=== PATIENT | female | born 1960 | race Two or more races ===

== ENCOUNTER 2016-11-19 15:36 | Inpatient (IN) | payer SELFPAY ==
[~2016-11-19] VITALS: Ht 165.1 cm; Wt 55.4 kg
[2016-11-19] MEDS ORDERED: SODIUM CHLORIDE 0.9% 1,000 ML IV ONE ×2 (16:06)
[2016-11-19 16:35] LABS: Basophils # (auto) 0 uL; Basophils % (auto) 0.5 % (0.0-2.0); Eosinophils # (auto) 0.1 uL; Hematocrit 36.3 % (36.0-46.0); Hemoglobin 12.3 g/dL (12.2-16.2); Lymphocytes # (auto) 2.5 uL; Lymphocytes % (auto) 37.2 % (10.0-50.0); Mean Corpuscular Hemoglobin 30.3 pg (28.0-32.0); Mean Corpuscular Volume 88.9 fL (80.0-100.0); Mean Platelet Volume 8.4 fL (6.9-10.8); Monocytes # (auto) 0.6 uL; Monocytes % (auto) 8.5 % (0.0-12.0); Neutrophils # (auto) 3.5 uL; Neutrophils % (auto) 51.8 % (37.0-80.0); Nucleated Red Blood Cells % 0.1 %; Platelet Count (auto) 184 10^3/uL (140-450); Red Cell Distribution Width 13.3 % (11.8-14.3); White Blood Cell 6.7 10^3/uL (4.4-10.8)
[2016-11-19 16:42] LABS: Urine Bilirubin Negative (Negative); Urine Blood 2+ /uL (Negative); Urine Color Yellow (Yellow); Urine Glucose Normal (Normal); Urine Ketone Negative (Negative); Urine Mucus FEW (None Seen); Urine Nitrite POSITIVE (Negative); Urine RBC 175 /hpf (0 - 4); Urine Urobilinogen Normal (Negative); Urine WBC Clumps PRESENT /hpf (None Seen); Urine pH 5.5 (5.0-8.0)
[2016-11-19 16:52] LABS: INR 1.06 (0.9-1.15); Partial Thromboplastin Time 31.5 sec (22.64-33.71); Prothrombin Time 11.6 sec (9.37-12.3)
[2016-11-19 17:01] LABS: Albumin 3.5 g/dL (3.4-5.0); BUN/Creatinine Ratio 18.6; Bilirubin, Total 0.9 mg/dL (0.2-1.0); Calcium 8.5 mg/dL (8.5-10.1); Potassium 3.6 mmol/L (3.5-5.1); Total Protein 7.9 g/dL (6.4-8.2)
[2016-11-19] MEDS ORDERED: CIPROFLOXACIN HCL 500 MG TAB PO ONE (17:15)
[2016-11-19] MEDS ORDERED: HETASTARCH 500 ML IV ONE (19:30)
[2016-11-19] MEDS ORDERED: cefTRIAXone 1GM/50ML D5W 50 ML IV ONE (19:45)
[2016-11-19 20:08] LABS: B-Type Natriuretic Peptide 224.28 pg/mL (0-100)
[2016-11-19 20:28] LABS: Temperature: 23.1 C (20.0-25.0)
[2016-11-19] MEDS ORDERED: MORPHINE SULF INJ 2 MG/ML SYRINGE 1ML IV PRN (22:30)
[2016-11-19] MEDS ORDERED: TEMAZEPAM 15 MG CAP PO PRN (22:30)
[2016-11-19] MEDS ORDERED: ACETAMINOPHEN 325 MG TAB PO PRN (22:30)
[2016-11-19] MEDS ORDERED: HYDROcodone-ACET 5/325MG TAB PO PRN (22:30)
[2016-11-19] MEDS ORDERED: ONDANSETRON HCL 4 MG/2 ML VIAL IV PRN (22:30)
[2016-11-19] MEDS ORDERED: NITROGLYCERIN 0.4 MG SL TAB SL PRN (22:30)
[2016-11-19] MEDS ORDERED: IOHEXOL 350 MG/ML 100ML IJ ONE (22:43)
[2016-11-20 00:15] VITALS: BP 93/68
[2016-11-20] MEDS: SODIUM CHLORIDE 0.9% 1,000 ML IV SCH ×2 (00:15→11:50)
[2016-11-20] MEDS ORDERED: ATOR40TA52 PO (04:05)
[2016-11-20] MEDS ORDERED: ASPI-231 PO (04:05)
[2016-11-20] MEDS ORDERED: CARV3.1240 PO (04:05)
[2016-11-20 04:43] VITALS: BP 85/53
[2016-11-20] MEDS ORDERED: SODIUM CHLORIDE 0.9% 500 ML IV ONE (05:30)
[2016-11-20 06:19] LABS: Basophils # (auto) 0 uL; Basophils % (auto) 0.5 % (0.0-2.0); Eosinophils # (auto) 0.1 uL; Eosinophils % (auto) 2.6 % (0.0-7.0); Hematocrit 21.5 % (36.0-46.0); Hemoglobin 7.5 g/dL (12.2-16.2); Lymphocytes # (auto) 1.2 uL; Lymphocytes % (auto) 36.2 % (10.0-50.0); Mean Corpuscular Hemoglobin 31.3 pg (28.0-32.0); Mean Corpuscular Volume 89.4 fL (80.0-100.0); Mean Platelet Volume 8.2 fL (6.9-10.8); Monocytes # (auto) 0.2 uL; Monocytes % (auto) 6.8 % (0.0-12.0); Neutrophils # (auto) 1.8 uL; Neutrophils % (auto) 53.9 % (37.0-80.0); Nucleated Red Blood Cells % 0.1 %; Platelet Count (auto) 102 10^3/uL (140-450); Red Cell Distribution Width 13.3 % (11.8-14.3); White Blood Cell 3.4 10^3/uL (4.4-10.8)
[2016-11-20 08:08] LABS: Potassium 3.8 mmol/L (3.5-5.1)
[2016-11-20 08:09] LABS: Albumin 2.4 g/dL (3.4-5.0); Bilirubin, Total 0.6 mg/dL (0.2-1.0); Calcium 7.1 mg/dL (8.5-10.1); Total Protein 5.1 g/dL (6.4-8.2)
[2016-11-20 09:00] VITALS: BP 100/59
[2016-11-20] MEDS ORDERED: ENOXAPARIN SOD 40 MG/0.4 ML SYRINGE SC SCH (10:00)
[2016-11-20] MEDS: ASPirin 81 mg TAB PO SCH (10:00)
[2016-11-20] MEDS: LEVOFLOXACIN 500MG 100 ML IV SCH (11:17)
[2016-11-20] MEDS: FAMOTIDINE 20 MG TAB PO SCH ×2 (11:17→23:13)
[2016-11-20 12:20] LABS: Basophils # (auto) 0 uL; Eosinophils # (auto) 0.1 uL; Eosinophils % (auto) 2.5 % (0.0-7.0); Hematocrit 27.3 % (36.0-46.0); Hemoglobin 9.8 g/dL (12.2-16.2); Lymphocytes # (auto) 1.6 uL; Lymphocytes % (auto) 39.1 % (10.0-50.0); Mean Corpuscular Hemoglobin 31.9 pg (28.0-32.0); Mean Corpuscular Hgb Conc. 35.7 g/dL (32.0-36.0); Mean Corpuscular Volume 89.5 fL (80.0-100.0); Mean Platelet Volume 8.1 fL (6.9-10.8); Monocytes # (auto) 0.3 uL; Monocytes % (auto) 7.6 % (0.0-12.0); Neutrophils % (auto) 49.8 % (37.0-80.0); Platelet Count (auto) 131 10^3/uL (140-450); Red Cell Distribution Width 13.2 % (11.8-14.3)
[2016-11-20 13:00] VITALS: BP 93/47
[2016-11-20 17:00] VITALS: BP 96/47
[2016-11-20 21:30] VITALS: BP 89/52
[2016-11-20] MEDS ORDERED: ATORVASTATIN 20 MG TAB PO SCH (22:00)
[2016-11-21] MEDS: SODIUM CHLORIDE 0.9% 1,000 ML IV SCH (01:13)
[2016-11-21 05:13] VITALS: BP 80/51
[2016-11-21 06:05] LABS: Basophils # (auto) 0 uL; Basophils % (auto) 0.3 % (0.0-2.0); Eosinophils # (auto) 0.2 uL; Eosinophils % (auto) 3.2 % (0.0-7.0); Hematocrit 28.5 % (36.0-46.0); Hemoglobin 10.1 g/dL (12.2-16.2); Lymphocytes # (auto) 1.6 uL; Lymphocytes % (auto) 31.2 % (10.0-50.0); Mean Corpuscular Hemoglobin 31.7 pg (28.0-32.0); Mean Corpuscular Hgb Conc. 35.4 g/dL (32.0-36.0); Mean Corpuscular Volume 89.3 fL (80.0-100.0); Mean Platelet Volume 8.2 fL (6.9-10.8); Monocytes # (auto) 0.4 uL; Monocytes % (auto) 8.3 % (0.0-12.0); Neutrophils # (auto) 2.9 uL; Nucleated Red Blood Cells % 0.1 %; Platelet Count (auto) 142 10^3/uL (140-450)
[2016-11-21 06:19] LABS: BUN/Creatinine Ratio 19.4; Calcium 7.3 mg/dL (8.5-10.1); Potassium 3.6 mmol/L (3.5-5.1)
[2016-11-21 08:00] VITALS: BP 93/68
[2016-11-21 09:35] VITALS: BP 94/55
[2016-11-21] MEDS: FAMOTIDINE 20 MG TAB PO SCH (10:00)
[2016-11-21] MEDS: ASPirin 81 mg TAB PO SCH (10:00)
[2016-11-21] MEDS: LEVOFLOXACIN 500MG 100 ML IV SCH (10:00)
[2016-11-21 12:11] VITALS: BP 94/55
[2016-11-21 13:00] VITALS: BP 77/51
== END 2016-11-21 13:35 | disposition home or self-care (01) | DRG 872 ==
LOC: ER 15:41 → TELE 15:42 → TELE-CENTR 11-20 00:20
PROVIDERS: ADMIT Nurse Practitioner; ATTEND Nurse Practitioner
DX: A41.9 Sepsis, unspecified organism (principal); I10 Essential (primary) hypertension; N39.0 Urinary tract infection, site not specified; D64.9 Anemia, unspecified; R19.5 Other fecal abnormalities; E86.0 Dehydration; Z86.73 Personal history of transient ischemic attack (TIA), and cerebral infarction without residual deficits
CPT/HCPCS: 36415; 71010; 71275; 74176; 80048; 80053; 81001; 82150; 83605; 83690; 83880; 84484; 85025; 85379; 85610; 85730; 87040; 93005; 93306; 96361; 96374; J0696; J1956; J2405

== ENCOUNTER 2016-11-24 15:58 | Inpatient (IN) | payer SELFPAY ==
[~2016-11-24] VITALS: Ht 157.5 cm; Wt 52.5 kg
[~2016-11-24 15:58] MED LIST: ASPI-231 PO; ATOR40TA52 PO; CARV3.1240 PO
[2016-11-24] MEDS ORDERED: DEXTROSE 50% SYRINGE 50 ML IV ONE (16:12)
[2016-11-24] MEDS ORDERED: DEXTROSE (50%) 50ML SYRG IV ONE (16:30)
[2016-11-24 16:54] LABS: Basophils # (auto) 0 uL; Basophils % (auto) 0.6 % (0.0-2.0); Eosinophils # (auto) 0.3 uL; Eosinophils % (auto) 5.6 % (0.0-7.0); Hematocrit 33.5 % (36.0-46.0); Hemoglobin 11.6 g/dL (12.2-16.2); Lymphocytes # (auto) 2.2 uL; Lymphocytes % (auto) 45.9 % (10.0-50.0); Mean Corpuscular Hemoglobin 30.4 pg (28.0-32.0); Mean Corpuscular Hgb Conc. 34.8 g/dL (32.0-36.0); Mean Corpuscular Volume 87.3 fL (80.0-100.0); Mean Platelet Volume 8.3 fL (6.9-10.8); Monocytes # (auto) 0.3 uL; Monocytes % (auto) 7.1 % (0.0-12.0); Neutrophils % (auto) 40.8 % (37.0-80.0); Nucleated Red Blood Cells % 0.1 %; Platelet Count (auto) 250 10^3/uL (140-450); Red Cell Distribution Width 13.2 % (11.8-14.3); White Blood Cell 4.9 10^3/uL (4.4-10.8)
[2016-11-24 17:03] LABS: Albumin 3.2 g/dL (3.4-5.0); Anion Gap 6 (5-15); Aspartate Aminotransferase 31 U/L (15-37); BUN/Creatinine Ratio 14.6; Blood Urea Nitrogen 6 mg/dL (7-18); Calcium 8.3 mg/dL (8.5-10.1); Carbon Dioxide 24 mmol/L (21-32); Chloride 97 mmol/L (98-107); GFR African American 207 mL/min; GFR Non-African American 171 mL/min; Glucose 52 mg/dL (74-106); Magnesium 2.4 mg/dL (1.6-2.6); Potassium 4.2 mmol/L (3.5-5.1); Sodium 127 mmol/L (136-145)
[2016-11-24 17:08] LABS: Alkaline Phosphatase 61 U/L (45-117); Bilirubin, Total 0.5 mg/dL (0.2-1.0); Total Protein 6.8 g/dL (6.4-8.2)
[2016-11-24] MEDS ORDERED: SODIUM CHLORIDE 0.9% 1,000 ML IVB ONE (18:04)
[2016-11-24 18:46] LABS: INR 1.15 (0.9-1.15); Partial Thromboplastin Time 41.4 sec (22.64-33.71); Prothrombin Time 12.5 sec (9.37-12.3)
[2016-11-24 20:25] LABS: Urine Bilirubin Negative (Negative); Urine Blood Negative /uL (Negative); Urine Color Yellow (Yellow); Urine Glucose 3+ mg/dL (Normal); Urine Ketone 2+ (Negative); Urine Nitrite Negative (Negative); Urine RBC <1 /hpf (0 - 4); Urine Urobilinogen Normal (Negative); Urine pH 6.5 (5.0-8.0)
[2016-11-24] MEDS ORDERED: NOREPINEPHRINE BITARTRATE 250 ML IV SCH ×2 (20:26→20:30)
[2016-11-24] MEDS: PHENYLEPHRINE INJ 20 MG in SODIUM CHL 0.9% 250 ML IV SCH (21:45)
[2016-11-24] MEDS ORDERED: ACETAMINOPHEN 325 MG TAB PO PRN (22:00)
[2016-11-24] MEDS ORDERED: DEXTROSE (50%) 50ML SYRG IV PRN (22:00)
[2016-11-24] MEDS ORDERED: HYDROcodone-ACET 5/325MG TAB PO PRN (22:00)
[2016-11-24] MEDS ORDERED: MORPHINE SULF INJ 2 MG/ML SYRINGE 1ML IV PRN (22:00)
[2016-11-24] MEDS ORDERED: NITROGLYCERIN 0.4 MG SL TAB SL PRN (22:00)
[2016-11-24] MEDS ORDERED: cefTRIAXone 1GM/50ML D5W 50 ML IV ONE (22:00)
[2016-11-24] MEDS ORDERED: ONDANSETRON HCL 4 MG/2 ML VIAL IV PRN (22:00)
[2016-11-24] MEDS: D5W/SOD CHLO 0.9% 1,000 ML IV SCH (22:23)
[2016-11-24] MEDS: FAMOTIDINE 20 MG TAB PO SCH (22:40)
[2016-11-24 22:41] LABS: BUN/Creatinine Ratio 14.8; Calcium 6.5 mg/dL (8.5-10.1)
[2016-11-24 23:11] VITALS: BP 111/62
[2016-11-24 23:16] VITALS: BP 87/63
[2016-11-24 23:31] VITALS: BP 96/52
[2016-11-24] MEDS: InsuLIN REG 1unit/0.01ml Soln (100units/ml) SC SCH (23:45)
[2016-11-24] MEDS: ACCU-CHEK COMFORT CURVE STRIP VI SCH (23:45)
[2016-11-24 23:46] VITALS: BP 100/61
[2016-11-25] VITALS (95 sets, daily range): BP systolic 79–156; BP diastolic 33–99
[2016-11-25] MEDS ORDERED: CALCIUM GLUC 4.65meq/50ml D5AE 50 ML IV ONE (00:45)
[2016-11-25] MEDS ORDERED: PNEUMOCOCCAL VACC POLYS 25 MCG/0.5 ML VIAL IM ONE (02:00)
[2016-11-25] MEDS ORDERED: PHENYLEPHRINE IV 250 ML IV ONE ×2 (03:56→11:36)
[2016-11-25] MEDS: InsuLIN REG 1unit/0.01ml Soln (100units/ml) SC SCH ×5 (04:00→19:43)
[2016-11-25 04:04] LABS: Basophils # (auto) 0 uL; Basophils % (auto) 0.4 % (0.0-2.0); Eosinophils # (auto) 0.3 uL; Eosinophils % (auto) 5.6 % (0.0-7.0); Hematocrit 31.3 % (36.0-46.0); Hemoglobin 10.8 g/dL (12.2-16.2); Lymphocytes # (auto) 2.2 uL; Lymphocytes % (auto) 37.4 % (10.0-50.0); Mean Corpuscular Hemoglobin 30.7 pg (28.0-32.0); Mean Corpuscular Hgb Conc. 34.6 g/dL (32.0-36.0); Mean Corpuscular Volume 88.7 fL (80.0-100.0); Mean Platelet Volume 8.4 fL (6.9-10.8); Monocytes # (auto) 0.4 uL; Neutrophils % (auto) 50.6 % (37.0-80.0); Nucleated Red Blood Cells % 0.1 %; Platelet Count (auto) 274 10^3/uL (140-450); Red Cell Distribution Width 13.1 % (11.8-14.3)
[2016-11-25] MEDS: ACCU-CHEK COMFORT CURVE STRIP VI SCH ×5 (04:07→19:43)
[2016-11-25] MEDS: PHENYLEPHRINE INJ 20 MG in SODIUM CHL 0.9% 250 ML IV SCH ×3 (04:08→20:58)
[2016-11-25 04:19] LABS: Potassium 3.7 mmol/L (3.5-5.1)
[2016-11-25 04:23] LABS: Albumin 2.4 g/dL (3.4-5.0); Calcium 6.9 mg/dL (8.5-10.1)
[2016-11-25 04:26] LABS: Bilirubin, Total 0.3 mg/dL (0.2-1.0); Total Protein 5.7 g/dL (6.4-8.2)
[2016-11-25] MEDS: cefTRIAXone 1GM/50ML D5W 50 ML IV SCH (09:05)
[2016-11-25] MEDS: FAMOTIDINE 20 MG TAB PO SCH ×2 (10:14→21:56)
[2016-11-25] MEDS: ENOXAPARIN SOD 40 MG/0.4 ML SYRINGE SC SCH (10:14)
[2016-11-25] MEDS: D5W/SOD CHLO 0.9% 1,000 ML IV SCH (11:50)
[2016-11-25] MEDS: Boost Glucose Control 8 Ounces PO SCH ×2 (12:00→18:00)
[2016-11-25 12:59] LABS: Allen Test Modified; Base Excess -4.5 mmol/L (-2.0-2.0); Blood 02Sat 89.3 % (96-100); Blood COHb 0.3 % (0.5-1.5); Blood MetHb 0.3 % (0.0-1.5); HCO3 19.2 mmol/L (22-26.0); HHb 10.6 % (0.0-5.0); MODE NASAL CANNULA; O2Hb 88.8 % (94.0-97.0); PCO2 31.3 mmHg (35.0-45.0); PCO2(T) 31.3 mmHg (35.0-45.0); PO2 56.3 mmHg (80.0-100.0); PO2(T) 56.3 mmHg (80.0-100.0); Sample Type Arterial; pH 7.406 (7.350-7.450)
[2016-11-25] MEDS ORDERED: NOREPINEPHRINE BITARTRATE 250 ML IV ONE (14:17)
[2016-11-25] MEDS ORDERED: SULF400T PO (14:17)
[2016-11-25] MEDS: NOREPINEPHRINE BITARTRATE 250 ML IV SCH (14:30)
[2016-11-25] MEDS ORDERED: VITAMINS A & D (TOPICAL) OINT 5GM TOP ONE (16:26)
[2016-11-25] MEDS ORDERED: IOHEXOL 350 MG/ML 100ML IJ ONE (17:38)
[2016-11-25] MEDS ORDERED: IOHEXOL 300 MG/ML 100ML BOTTLE IJ ONE (17:41)
[2016-11-26] VITALS (94 sets, daily range): BP systolic 74–114; BP diastolic 44–74
[2016-11-26] MEDS: D5W/SOD CHLO 0.9% 1,000 ML IV SCH ×2 (02:00→13:07)
[2016-11-26 03:53] LABS: Basophils # (auto) 0 uL; Basophils % (auto) 0.4 % (0.0-2.0); Eosinophils # (auto) 0.2 uL; Hematocrit 32.7 % (36.0-46.0); Hemoglobin 11.2 g/dL (12.2-16.2); Lymphocytes # (auto) 2.7 uL; Lymphocytes % (auto) 38.3 % (10.0-50.0); Mean Corpuscular Hemoglobin 30.2 pg (28.0-32.0); Mean Corpuscular Hgb Conc. 34.3 g/dL (32.0-36.0); Mean Corpuscular Volume 88.1 fL (80.0-100.0); Mean Platelet Volume 8.2 fL (6.9-10.8); Monocytes # (auto) 0.6 uL; Monocytes % (auto) 8.7 % (0.0-12.0); Neutrophils # (auto) 3.5 uL; Neutrophils % (auto) 49.6 % (37.0-80.0); Nucleated Red Blood Cells % 0.1 %; Platelet Count (auto) 266 10^3/uL (140-450); Red Cell Distribution Width 13.3 % (11.8-14.3); White Blood Cell 7.1 10^3/uL (4.4-10.8)
[2016-11-26] MEDS: InsuLIN REG 1unit/0.01ml Soln (100units/ml) SC SCH ×6 (04:00→20:29)
[2016-11-26 04:13] LABS: Anion Gap 10 (5-15); Blood Urea Nitrogen < 1 mg/dL (7-18); Carbon Dioxide 20 mmol/L (21-32); Chloride 98 mmol/L (98-107); GFR African American 266 mL/min; GFR Non-African American 220 mL/min; Glucose 134 mg/dL (74-106); Potassium 3.4 mmol/L (3.5-5.1); Sodium 128 mmol/L (136-145)
[2016-11-26] MEDS: ACCU-CHEK COMFORT CURVE STRIP VI SCH ×6 (04:19→20:29)
[2016-11-26] MEDS: PHENYLEPHRINE INJ 20 MG in SODIUM CHL 0.9% 250 ML IV SCH (05:18)
[2016-11-26] MEDS: cefTRIAXone 1GM/50ML D5W 50 ML IV SCH (08:58)
[2016-11-26] MEDS: Boost Glucose Control 8 Ounces PO SCH ×3 (09:00→18:00)
[2016-11-26] MEDS: FAMOTIDINE 20 MG TAB PO SCH ×2 (10:35→22:30)
[2016-11-26] MEDS: ENOXAPARIN SOD 40 MG/0.4 ML SYRINGE SC SCH (10:37)
[2016-11-26] MEDS ORDERED: POTASSIUM CHL 20 Meq TABLET PO ONE (11:00)
[2016-11-26] MEDS: HYDROCORTISONE SOD SUCC 100 MG/2ML INJ VIAL IV SCH ×2 (12:05→20:29)
[2016-11-26] MEDS: NOREPINEPHRINE BITARTRATE 250 ML IV SCH (14:40)
[2016-11-27] VITALS (90 sets, daily range): BP systolic 75–126; BP diastolic 30–88
[2016-11-27] MEDS: ACCU-CHEK COMFORT CURVE STRIP VI SCH ×7 (00:30→23:58)
[2016-11-27] MEDS: InsuLIN REG 1unit/0.01ml Soln (100units/ml) SC SCH ×7 (01:09→23:58)
[2016-11-27] MEDS: D5W/SOD CHLO 0.9% 1,000 ML IV SCH (02:57)
[2016-11-27] MEDS: HYDROCORTISONE SOD SUCC 100 MG/2ML INJ VIAL IV SCH ×3 (04:15→20:30)
[2016-11-27 05:16] LABS: BUN/Creatinine Ratio 2.5; Calcium 8.2 mg/dL (8.5-10.1); Potassium 3.5 mmol/L (3.5-5.1)
[2016-11-27] MEDS: Boost Glucose Control 8 Ounces PO SCH ×3 (08:03→18:18)
[2016-11-27] MEDS: cefTRIAXone 1GM/50ML D5W 50 ML IV SCH (08:59)
[2016-11-27] MEDS: ENOXAPARIN SOD 40 MG/0.4 ML SYRINGE SC SCH (09:55)
[2016-11-27] MEDS: FAMOTIDINE 20 MG TAB PO SCH ×2 (09:55→22:00)
[2016-11-27] MEDS ORDERED: LEVOTHYROXINE SODIUM 25 MCG TAB PO ONE (12:45)
[2016-11-27] MEDS: SODIUM CHLORIDE 0.9% 1,000 ML IV SCH ×2 (13:53→22:45)
[2016-11-27] MEDS: NOREPINEPHRINE BITARTRATE 250 ML IV SCH (14:30)
[2016-11-27] MEDS: LORazepam 0.5 MG TAB PO PRN (21:00)
[2016-11-27] MEDS: TEMAZEPAM 15 MG CAP PO PRN (22:00)
[2016-11-28] VITALS (95 sets, daily range): BP systolic 74–129; BP diastolic 32–83
[2016-11-28] MEDS: ACCU-CHEK COMFORT CURVE STRIP VI SCH ×5 (03:59→20:00)
[2016-11-28] MEDS: InsuLIN REG 1unit/0.01ml Soln (100units/ml) SC SCH ×5 (04:00→20:00)
[2016-11-28] MEDS: HYDROCORTISONE SOD SUCC 100 MG/2ML INJ VIAL IV SCH ×3 (04:27→20:00)
[2016-11-28] MEDS: LORazepam 0.5 MG TAB PO PRN ×2 (04:30→14:25)
[2016-11-28 04:44] LABS: BUN/Creatinine Ratio 13.3; Magnesium 2.5 mg/dL (1.6-2.6); Potassium 3.7 mmol/L (3.5-5.1)
[2016-11-28] MEDS: Boost Glucose Control 8 Ounces PO SCH ×3 (07:57→18:56)
[2016-11-28] MEDS: LEVOTHYROXINE SODIUM 25 MCG TAB PO SCH (07:57)
[2016-11-28] MEDS ORDERED: SODIUM CHLORIDE 0.9% 1,000 ML IV ONE (09:30)
[2016-11-28] MEDS: SODIUM CHLORIDE 0.9% 1,000 ML IV SCH ×2 (09:43→18:45)
[2016-11-28] MEDS: cefTRIAXone 1GM/50ML D5W 50 ML IV SCH (09:43)
[2016-11-28] MEDS: FAMOTIDINE 20 MG TAB PO SCH ×2 (09:48→22:10)
[2016-11-28] MEDS: NOREPINEPHRINE BITARTRATE 250 ML IV SCH (14:30)
[2016-11-28] MEDS: TEMAZEPAM 15 MG CAP PO PRN (22:10)
[2016-11-29] VITALS (87 sets, daily range): BP systolic 83–122; BP diastolic 35–71
[2016-11-29] MEDS: ACCU-CHEK COMFORT CURVE STRIP VI SCH ×7 (00:01→23:32)
[2016-11-29] MEDS: InsuLIN REG 1unit/0.01ml Soln (100units/ml) SC SCH ×7 (00:08→23:32)
[2016-11-29] MEDS ORDERED: GASTROGRAFIN 30 ML SOL ONE (07:52)
[2016-11-29] MEDS: Boost Glucose Control 8 Ounces PO SCH ×3 (09:10→19:26)
[2016-11-29] MEDS: cefTRIAXone 1GM/50ML D5W 50 ML IV SCH (09:10)
[2016-11-29] MEDS: LEVOTHYROXINE SODIUM 25 MCG TAB PO SCH (09:11)
[2016-11-29] MEDS: HYDROCORTISONE SOD SUCC 100 MG/2ML INJ VIAL IV SCH ×2 (09:11→11:49)
[2016-11-29] MEDS ORDERED: IOHEXOL 300 MG/ML 100ML BOTTLE IJ ONE (10:51)
[2016-11-29] MEDS: FAMOTIDINE 20 MG TAB PO SCH ×2 (11:49→22:00)
[2016-11-29] MEDS: SODIUM CHLORIDE 0.9% 1,000 ML IV SCH (11:56)
[2016-11-29] MEDS: NOREPINEPHRINE BITARTRATE 250 ML IV SCH (14:30)
[2016-11-29] MEDS ORDERED: predniSONE 5 MG TAB PO SCH (16:00)
[2016-11-29] MEDS ORDERED: predniSONE 5 MG TAB PO ONE (16:00)
[2016-11-29] MEDS: predniSONE 20 MG TAB PO SCH (17:52)
[2016-11-29] MEDS ORDERED: HYDROCORTISONE SOD SUCC 100 MG/2ML INJ VIAL IV SCH (20:00)
[2016-11-29] MEDS: TEMAZEPAM 15 MG CAP PO PRN (22:40)
[2016-11-30] VITALS (23 sets, daily range): BP systolic 87–141; BP diastolic 42–77
[2016-11-30] MEDS: ACCU-CHEK COMFORT CURVE STRIP VI SCH ×3 (04:00→12:30)
[2016-11-30] MEDS: InsuLIN REG 1unit/0.01ml Soln (100units/ml) SC SCH ×3 (04:00→12:41)
[2016-11-30 04:03] LABS: Basophils # (auto) 0 uL; Basophils % (auto) 0.1 % (0.0-2.0); Eosinophils # (auto) 0 uL; Hematocrit 28.8 % (36.0-46.0); Hemoglobin 9.8 g/dL (12.2-16.2); Mean Corpuscular Hemoglobin 30.6 pg (28.0-32.0); Mean Corpuscular Hgb Conc. 33.9 g/dL (32.0-36.0); Mean Corpuscular Volume 90.3 fL (80.0-100.0); Mean Platelet Volume 7.8 fL (6.9-10.8); Monocytes # (auto) 0.2 uL; Monocytes % (auto) 3.2 % (0.0-12.0); Neutrophils # (auto) 5.8 uL; Neutrophils % (auto) 82.7 % (37.0-80.0); Nucleated Red Blood Cells % 0.1 %; Platelet Count (auto) 232 10^3/uL (140-450); Red Cell Distribution Width 14.6 % (11.8-14.3)
[2016-11-30 04:23] LABS: Potassium 3.6 mmol/L (3.5-5.1)
[2016-11-30 04:27] LABS: BUN/Creatinine Ratio 25.5; Calcium 7.5 mg/dL (8.5-10.1); Magnesium 2.4 mg/dL (1.6-2.6)
[2016-11-30] MEDS: LEVOTHYROXINE SODIUM 25 MCG TAB PO SCH (06:32)
[2016-11-30] MEDS: Boost Glucose Control 8 Ounces PO SCH ×3 (08:00→18:00)
[2016-11-30] MEDS: predniSONE 20 MG TAB PO SCH ×2 (09:08→16:30)
[2016-11-30] MEDS: FAMOTIDINE 20 MG TAB PO SCH ×2 (09:43→21:26)
[2016-11-30] MEDS: TEMAZEPAM 15 MG CAP PO PRN (21:26)
[2016-12-01] VITALS (23 sets, daily range): BP systolic 96–121; BP diastolic 35–71
[2016-12-01] MEDS: LEVOTHYROXINE SODIUM 25 MCG TAB PO SCH (06:48)
[2016-12-01] MEDS: predniSONE 20 MG TAB PO SCH (09:08)
[2016-12-01] MEDS: Boost Glucose Control 8 Ounces PO SCH ×3 (09:08→18:17)
[2016-12-01] MEDS: FAMOTIDINE 20 MG TAB PO SCH ×2 (09:11→21:42)
[2016-12-01 09:44] LABS: Temperature: 22.9 C (20.0-25.0)
[2016-12-01] MEDS: HYDROCORTISONE 10 MG TAB PO SCH (21:43)
[2016-12-01] MEDS ORDERED: HYDROCORTISONE 10 MG TAB PO SCH (22:00)
[2016-12-01] MEDS: TEMAZEPAM 15 MG CAP PO PRN (23:14)
[2016-12-02] VITALS (9 sets, daily range): BP systolic 93–122; BP diastolic 42–70
[2016-12-02] MEDS: LEVOTHYROXINE SODIUM 25 MCG TAB PO SCH (06:50)
[2016-12-02] MEDS: Boost Glucose Control 8 Ounces PO SCH ×3 (08:00→18:12)
[2016-12-02] MEDS: FAMOTIDINE 20 MG TAB PO SCH ×2 (09:44→22:46)
[2016-12-02] MEDS: HYDROCORTISONE 10 MG TAB PO SCH ×2 (09:44→22:46)
[2016-12-02] MEDS: TEMAZEPAM 15 MG CAP PO PRN (22:47)
[2016-12-03 05:27] VITALS: BP 105/75
[2016-12-03] MEDS: LEVOTHYROXINE SODIUM 25 MCG TAB PO SCH (06:41)
[2016-12-03 07:38] VITALS: BP 125/68
[2016-12-03] MEDS: Boost Glucose Control 8 Ounces PO SCH ×3 (08:35→18:17)
[2016-12-03] MEDS: HYDROCORTISONE 10 MG TAB PO SCH ×2 (10:03→22:15)
[2016-12-03] MEDS: FAMOTIDINE 20 MG TAB PO SCH ×2 (10:04→22:15)
[2016-12-03 16:39] VITALS: BP 110/59
[2016-12-03 22:02] VITALS: BP 113/69
[2016-12-04 05:15] VITALS: BP 117/70
[2016-12-04] MEDS: LEVOTHYROXINE SODIUM 25 MCG TAB PO SCH (06:22)
[2016-12-04] MEDS: Boost Glucose Control 8 Ounces PO SCH ×3 (08:00→18:00)
[2016-12-04 09:00] VITALS: BP 128/59
[2016-12-04] MEDS: HYDROCORTISONE 10 MG TAB PO SCH (10:37)
[2016-12-04] MEDS: FAMOTIDINE 20 MG TAB PO SCH (10:37)
[2016-12-04 13:00] VITALS: BP 102/59
[2016-12-04] MEDS ORDERED: HYDR10T PO (15:10)
[2016-12-04] MEDS ORDERED: LEV25T PO (15:10)
[2016-12-04 15:42] VITALS: BP 102/59
[2016-12-04 16:50] VITALS: BP 125/76
== END 2016-12-04 18:15 | disposition home or self-care (01) | DRG 643 ==
LOC: ER 16:02 → TELE 16:03 → ICU WEST 23:04 → WEST WING 12-02 14:24
PROVIDERS: ADMIT Nurse Practitioner; ATTEND Nurse Practitioner Acute Care
PROC: 5A1935Z Respiratory Ventilation, Less than 24 Consecutive Hours (ICD-10-PCS; principal; 2016-11-25)
DX: E27.49 Other adrenocortical insufficiency (principal); G93.41 Metabolic encephalopathy; T68.XXXA Hypothermia, initial encounter; E23.0 Hypopituitarism; E87.1 Hypo-osmolality and hyponatremia; N39.0 Urinary tract infection, site not specified; E23.6 Other disorders of pituitary gland; D64.9 Anemia, unspecified; I10 Essential (primary) hypertension; E78.5 Hyperlipidemia, unspecified; E16.2 Hypoglycemia, unspecified; Z53.20 Procedure and treatment not carried out because of patient's decision for unspecified reasons; F41.9 Anxiety disorder, unspecified; Z83.3 Family history of diabetes mellitus; Z86.73 Personal history of transient ischemic attack (TIA), and cerebral infarction without residual deficits; Z81.1 Family history of alcohol abuse and dependence
CPT/HCPCS: 36415; 36600; 51702; 70470; 71010; 80048; 80053; 81001; 82024; 82533; 82607; 82746; 82805; 82962; 83001; 83605; 83735; 83970; 84146; 84439; 84443; 84481; 84484; 85025; 85610; 85730; 86850; 86900; 86901; 87040; 87081; 87086; 93005; 95819; 96361; 96365; 96375; 97116; 97530; 99291; J0610; J0696; J1815; J2405; J7042

== ENCOUNTER 2017-05-03 15:34 | Emergency (ER) | payer MEDICAID ==
[~2017-05-03] VITALS: Ht 162.6 cm; Wt 49.0 kg
[~2017-05-03 15:34] MED LIST changes: +HYDR10T PO; +LEV25T PO
[2017-05-03 16:38] LABS: Albumin 3.7 g/dL (3.4-5.0); BUN/Creatinine Ratio 23.5; Calcium 8.7 mg/dL (8.5-10.1); Potassium 3.9 mmol/L (3.5-5.1)
[2017-05-03 16:40] LABS: Basophils # (auto) 0 uL; Basophils % (auto) 0.3 % (0.0-2.0); Eosinophils # (auto) 0.3 uL; Hematocrit 36.6 % (36.0-46.0); Hemoglobin 12.3 g/dL (12.2-16.2); Lymphocytes # (auto) 2.7 uL; Lymphocytes % (auto) 32.8 % (10.0-50.0); Mean Corpuscular Hemoglobin 29.1 pg (28.0-32.0); Mean Corpuscular Hgb Conc. 33.5 g/dL (32.0-36.0); Mean Corpuscular Volume 86.9 fL (80.0-100.0); Monocytes # (auto) 0.5 uL; Monocytes % (auto) 6.4 % (0.0-12.0); Neutrophils # (auto) 4.8 uL; Neutrophils % (auto) 57.5 % (37.0-80.0); Nucleated Red Blood Cells % 0.2 %; Platelet Count (auto) 204 10^3/uL (140-450); Red Blood Cells 4.21 10^6/uL (4.0-5.20); Red Cell Distribution Width 13.6 % (11.8-14.3); White Blood Cell 8.4 10^3/uL (4.4-10.8)
[2017-05-03 16:41] LABS: Bilirubin, Total 0.7 mg/dL (0.2-1.0); Total Protein 7.1 g/dL (6.4-8.2)
[2017-05-03 17:05] LABS: Urine Bacteria FEW /hpf (None Seen); Urine Blood 2+ /uL (Negative); Urine Specific Gravity 1.019 (1.001-1.035); Urine WBC 2551 /hpf (0 - 5)
[2017-05-03] MEDS ORDERED: SODIUM CHLORIDE 0.9% 1,000 ML IVB ONE (17:47)
[2017-05-03] MEDS ORDERED: cefTRIAXone 1GM/10ml IVPUSH 10 ML IV ONE (18:00)
[2017-05-03] MEDS ORDERED: ONDANSETRON HCL 4 MG/2 ML VIAL IV ONE (18:00)
[2017-05-03 18:42] VITALS: BP 95/63
== END 2017-05-03 19:25 | disposition home or self-care (01) ==
LOC: ER 15:39
DX: N39.0 Urinary tract infection, site not specified (principal); E78.5 Hyperlipidemia, unspecified; I10 Essential (primary) hypertension; Z79.899 Other long term (current) drug therapy; Z79.82 Long term (current) use of aspirin; Z86.73 Personal history of transient ischemic attack (TIA), and cerebral infarction without residual deficits
CPT/HCPCS: 36415; 74176; 80053; 81001; 83690; 85025; 93005; 94761; 96361; 96374; 96375; 99285; J2405; J7030

== ENCOUNTER 2018-10-06 11:21 | Emergency (ER) | payer MEDICAID ==
[~2018-10-06] VITALS: Ht 154.9 cm; Wt 54.4 kg
[~2018-10-06 11:21] MED LIST changes: +FERR1TAB8; +PANT40TA2 PO
[2018-10-06 11:58] LABS: Basophils # (auto) 0.1 uL; Basophils % (auto) 1.2 % (0.0-2.0); Eosinophils # (auto) 0.2 uL; Eosinophils % (auto) 4.1 % (0.0-7.0); Hematocrit 38.3 % (36.0-46.0); Hemoglobin 13.4 g/dL (12.2-16.2); Lymphocytes # (auto) 2.2 uL; Lymphocytes % (auto) 45.6 % (10.0-50.0); Mean Corpuscular Hemoglobin 31.4 pg (28.0-32.0); Mean Corpuscular Volume 89.5 fL (80.0-100.0); Monocytes # (auto) 0.3 uL; Monocytes % (auto) 5.9 % (0.0-12.0); Neutrophils # (auto) 2.1 uL; Neutrophils % (auto) 43.2 % (37.0-80.0); Nucleated Red Blood Cells % 0.1 %; Platelet Count (auto) 154 10^3/uL (140-450); Red Blood Cells 4.28 10^6/uL (4.0-5.20); Red Cell Distribution Width 13.3 % (11.8-14.3); White Blood Cell 4.9 10^3/uL (4.4-10.8)
[2018-10-06] MEDS ORDERED: SODIUM CHLORIDE 0.9% 1,000 ML IVB ONE (12:08)
[2018-10-06] MEDS ORDERED: ONDANSETRON HCL 4 MG/2 ML VIAL IV ONE (12:15)
[2018-10-06 12:23] LABS: Albumin 3.9 g/dL (3.4-5.0); Anion Gap 6 (5-15); Blood Urea Nitrogen 15 mg/dL (7-18); Calcium 8.9 mg/dL (8.5-10.1); Carbon Dioxide 27 mmol/L (21-32); Chloride 106 mmol/L (98-107); Glucose 94 mg/dL (74-106); Potassium 3.6 mmol/L (3.5-5.1); Sodium 139 mmol/L (136-145)
[2018-10-06 12:26] LABS: Urine Bacteria NONE SEEN /hpf (None Seen); Urine Blood Negative /uL (Negative); Urine Mucus FEW (None Seen); Urine Specific Gravity 1.019 (1.001-1.035); Urine WBC 7 /hpf (0 - 5)
[2018-10-06 12:28] LABS: Alanine Aminotransferase 16 U/L (13-56); Alkaline Phosphatase 54 U/L (45-117); Aspartate Aminotransferase 33 U/L (15-37); BUN/Creatinine Ratio 25.4; Bilirubin, Total 0.5 mg/dL (0.2-1.0); GFR African American 135 mL/min; GFR Non-African American 112 mL/min; Total Protein 8.2 g/dL (6.4-8.2)
[2018-10-06 12:35] LABS: INR 1.03 (0.9-1.15)
[2018-10-06 12:43] LABS: Magnesium 2.2 mg/dL (1.6-2.6)
[2018-10-06 12:59] VITALS: BP 121/54
== END 2018-10-06 14:34 | disposition home or self-care (01) ==
LOC: ER 11:23
DX: K52.9 Noninfective gastroenteritis and colitis, unspecified (principal); E78.5 Hyperlipidemia, unspecified; I10 Essential (primary) hypertension; Z86.39 Personal history of other endocrine, nutritional and metabolic disease; Z86.73 Personal history of transient ischemic attack (TIA), and cerebral infarction without residual deficits
CPT/HCPCS: 36415; 71045; 74176; 80053; 81001; 82150; 83690; 83735; 84484; 85025; 85610; 85730; 93005; 94761; 96361; 96374; 99284; J2405; J7030

== ENCOUNTER 2022-12-31 19:07 | Emergency (ER) | payer MEDICAID, OTHER ==
[~2022-12-31] VITALS: Ht 157.5 cm; Wt 60.0 kg
[~2022-12-31 19:07] MED LIST changes: -ASPI-231 PO; +ASPI1TAB20 PO
[2022-12-31] MEDS ORDERED: LIDOCAINE VISCOUS 2% 15ML UD MT ONE (20:00)
[2022-12-31] MEDS ORDERED: MAALOX PLUS or MAALOX 30 ML PO ONE (20:00)
[2022-12-31] MEDS ORDERED: ONDANSETRON ODT 4 MG TAB PO ONE (20:00)
[2022-12-31 20:31] LABS: Basophils # (auto) 0.2 10 ^3/uL (0-0.2); Basophils % (auto) 1.9 % (0.0-2.0); Eosinophils # (auto) 0.1 10 ^3/uL (0-0.8); Eosinophils % (auto) 1.2 % (0.0-7.0); Hematocrit 40.6 % (36.0-46.0); Hemoglobin 13.8 g/dL (12.2-16.2); Lymphocytes # (auto) 1.9 10 ^3/uL (0.4-5.4); Lymphocytes % (auto) 21.3 % (10.0-50.0); Mean Corpuscular Hemoglobin 30.7 pg (28.0-32.0); Mean Corpuscular Hgb Conc. 33.9 g/dL (32.0-36.0); Mean Corpuscular Volume 90.6 fL (80.0-100.0); Monocytes # (auto) 0.3 10 ^3/uL (0-1.3); Monocytes % (auto) 3.7 % (0.0-12.0); Neutrophils # (auto) 6.6 10 ^3/uL (1.6-8.6); Neutrophils % (auto) 71.9 % (37.0-80.0); Nucleated Red Blood Cells % 0.1 %; Red Blood Cells 4.49 10^6/uL (4.0-5.20); Red Cell Distribution Width 13.2 % (11.8-14.3); White Blood Cell 9.1 10^3/uL (4.4-10.8)
[2022-12-31 20:36] LABS: Urine Bacteria FEW /hpf (None Seen); Urine Blood 1+ /uL (Negative); Urine Clarity Clear (Clear); Urine Color Yellow (Yellow); Urine Mucus FEW (None Seen); Urine Protein, UAD TRACE (Negative); Urine Specific Gravity 1.023 (1.001-1.035); Urine Urobilinogen Normal (Negative); Urine WBC 65 /hpf (0 - 5); Urine pH 5.5 (5.0-8.0)
[2022-12-31 20:46] LABS: Alanine Aminotransferase 24 U/L (7-40); Albumin 4.5 g/dL (3.2-4.8); Alkaline Phosphatase 82 U/L (46-116); Anion Gap 10 (5-15); Aspartate Aminotransferase 32 U/L (13-40); BUN/Creatinine Ratio 15.6 (10.0-20.0); Blood Urea Nitrogen 12 mg/dL (9-23); Calcium 9.4 mg/dL (8.7-10.4); Carbon Dioxide 24 mmol/L (20-30); Chloride 103 mmol/L (98-107); Glucose 157 mg/dL (74-106); Lipase 59 U/L (12-53); Potassium 3.4 mmol/L (3.5-5.1); Sodium 137 mmol/L (136-145)
[2022-12-31 20:47] LABS: Bilirubin, Total 0.4 mg/dL (0.2-1.0); Total Protein 7.6 g/dL (5.7-8.2)
[2023-01-01] MEDS ORDERED: ESOM40CA39 PO (00:54)
[2023-01-01] MEDS ORDERED: NITR-87 PO (00:54)
[2023-01-01 01:14] VITALS: BP 111/69; TEMP 97.9
[2023-01-01 01:38] VITALS: PULSE 78; RESP 16; O2SAT 98
== END 2023-01-01 01:39 | disposition home or self-care (01) ==
LOC: ER 19:07
DX: K29.00 Acute gastritis without bleeding (principal); N39.0 Urinary tract infection, site not specified; I10 Essential (primary) hypertension; E78.5 Hyperlipidemia, unspecified; Z86.73 Personal history of transient ischemic attack (TIA), and cerebral infarction without residual deficits; Z79.82 Long term (current) use of aspirin; Z79.899 Other long term (current) drug therapy
CPT/HCPCS: 36415; 74176; 80053; 81001; 83690; 84484; 85025; 93005; 99284; Q0162

== ENCOUNTER 2023-06-20 12:31 | Emergency (ER) | payer MEDICAID, OTHER ==
[~2023-06-20] VITALS: Ht 154.9 cm; Wt 60.8 kg
[~2023-06-20 12:31] MED LIST changes: +ESOM40CA39 PO; +NITR-87 PO
[2023-06-20 12:43] VITALS: BP 129/74; PULSE 78; RESP 18; O2SAT 100
[2023-06-20 14:04] LABS: Basophils # (auto) 0 10 ^3/uL (0-0.2); Basophils % (auto) 0.2 % (0.0-2.0); Eosinophils # (auto) 0.1 10 ^3/uL (0-0.8); Eosinophils % (auto) 0.6 % (0.0-7.0); Hematocrit 39.6 % (36.0-46.0); Hemoglobin 13.4 g/dL (12.2-16.2); Lymphocytes # (auto) 1.1 10 ^3/uL (0.4-5.4); Lymphocytes % (auto) 11.4 % (10.0-50.0); Mean Corpuscular Hemoglobin 30.6 pg (28.0-32.0); Mean Corpuscular Hgb Conc. 33.9 g/dL (32.0-36.0); Mean Corpuscular Volume 90.4 fL (80.0-100.0); Monocytes # (auto) 0.2 10 ^3/uL (0-1.3); Monocytes % (auto) 2.3 % (0.0-12.0); Neutrophils # (auto) 8.3 10 ^3/uL (1.6-8.6); Neutrophils % (auto) 85.5 % (37.0-80.0); Nucleated Red Blood Cells % 0.1 %; Red Blood Cells 4.38 10^6/uL (4.0-5.20); Red Cell Distribution Width 13.2 % (11.8-14.3); White Blood Cell 9.7 10^3/uL (4.4-10.8)
[2023-06-20 14:12] LABS: Chloride 104 mmol/L (98-107); Potassium 3.9 mmol/L (3.5-5.1); Sodium 138 mmol/L (136-145)
[2023-06-20 14:13] LABS: Anion Gap 6 (5-15); Carbon Dioxide 28 mmol/L (20-30)
[2023-06-20 14:14] LABS: Calcium 9.1 mg/dL (8.7-10.4)
[2023-06-20 14:18] LABS: BUN/Creatinine Ratio 13.2 (10.0-20.0); Blood Urea Nitrogen 10 mg/dL (9-23); Glucose 127 mg/dL (74-106)
== END 2023-06-20 17:57 | disposition left against medical advice (07) ==
LOC: ER 12:31
DX: R51.9 Headache, unspecified (principal); R42 Dizziness and giddiness; G90.9 Disorder of the autonomic nervous system, unspecified; E78.5 Hyperlipidemia, unspecified; I10 Essential (primary) hypertension; Z86.73 Personal history of transient ischemic attack (TIA), and cerebral infarction without residual deficits
CPT/HCPCS: 36415; 70450; 80048; 85025